=== PATIENT | male | born 1975 | race Caucasian/White ===

== ENCOUNTER 2020-02-01 15:27 | Outpatient (CLI) | payer OTHER, SELFPAY | END 2020-02-01 15:28 | disposition home or self-care (01) | PROVIDERS: PCP Internal Medicine; Visit Provider Surgery | DX: Z01.818 Encounter for other preprocedural examination (principal); K40.20 Bilateral inguinal hernia, without obstruction or gangrene, not specified as recurrent | CPT/HCPCS: 36415; 86850; 86900; 86901 ==

== ENCOUNTER 2020-02-06 00:01 | Outpatient (CLI) | payer OTHER, SELFPAY ==
[2020-02-06 18:54] LABS: SARS-CoV-2 RNA PCR Negative
== END 2020-02-06 00:02 | disposition home or self-care (01) ==
LOC: ANHCOVIDDT 00:01
PROVIDERS: PCP Internal Medicine; Visit Provider Surgery
DX: Z01.812 Encounter for preprocedural laboratory examination (principal); Z11.59 Encounter for screening for other viral diseases
CPT/HCPCS: 87635; C9803; U0003

== ENCOUNTER 2020-02-08 01:22 | Day surgery (SDC) | payer OTHER, SELFPAY ==
[2020-01-30 13:13] VITALS: BMI 25.1
[2020-02-08] VITALS (11 sets, daily range): BP systolic 118–169; BP diastolic 67–83; PULSE 43–52; RESP 12–20; TEMP 36.1–36.5; O2SAT 99–100
[2020-02-08] MEDS: LACTATED RINGERS 1,000 ML 30 ML IV CONT ×3 (06:49→10:56)
--- NOTE | 2020-02-08 06:53 | P.PNAN_ITS ---
Anes - Initial Pre Proc Eval Procedure: Operation Date: 02/08/20 07:30 Proposed Procedures p Laparoscopic Bilateral Inguinal Hernia Repair With Mesh, Davinci Assisted - Cordell Chowdary DO Date/Time: 02/08/20 06:53 Surgeon: Cordell Chowdary DO Pre Op Diagnosis: Bilateral Inguinal Hernia Patient Data Age: 44 Gender: M Height: 5 ft 9 in Weight: 78.4 kg Allergies Allergy/AdvReac Type Severity Reaction Status Date / Time No Known Allergies Allergy Verified 02/08/20 06:35 Home Medications Medication Instructions Recorded Confirmed Type omeprazole 20 mg capsule,delayed 20 mg PO DAILY 09/22/19 02/08/20 History release Patient hx anesthesia problems: none Family hx anesthesia problems: none PMFSH Past Medical History Medical History GERD (gastroesophageal reflux disease) Liver hematoma Surgical History Surgical History History of ankle surgery 2013 left and right History of esophagogastroduodenoscopy (EGD) 2009 Family History Family History Father Cerebrovascular accident Hypertension High blood cholesterol Other Family history of malignant neoplasm Social History Social History Smoking status: Never smoker Alcohol intake: current Substance use: never 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 Anes - Eval Final PreProcedure Day of Procedure 02/08/20 06:53 Patient weight: normal Heart: regular rate and rhythm Lungs: clear to auscultation Airway: Mallampati scale class 1 Neurological: alert and oriented Last oral intake: >/= 8 hours ASA classification: II Emergent: no Anesthetic plan: proceed Anesthesia type and monitoring: general ETT and standard monitoring Informed Consent: The patient's anesthetic plan and its attendant risks and benefits were discussed with the patient/family/POA. Questions were solicited and answers provided to the satisfaction of the patient/family/POA.
--- NOTE | 2020-02-08 06:57 | PM.IMHP ---
H&P: HPI History of Present Illness Chief complaint: Bilateral Inguinal Hernia Narrative: Cordell Abdalla Jr. is a 44 year old male who presents for bilateral inguinal hernia repair. He had noticed a bulge that was not painful. He reports no changes since last seen in office. 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 Allergies Home Medications Medication Instructions Recorded Confirmed Type omeprazole 20 mg capsule,delayed 20 mg PO DAILY 09/22/19 02/08/20 History release Allergies Allergy/AdvReac Type Severity Reaction Status Date / Time No Known Allergies Allergy Verified 02/08/20 06:35 Exam Const: General: no acute distress and alert Orientation/consciousness: patient oriented x3 HENMT: Head: normocephalic and atraumatic Ears: hearing grossly normal bilaterally General nose exam: Normal nares present Mouth: Yes Normal oral and palatal mucosa present Eyes: Periorbital: periorbital findings normal Sclera: sclerae normal EOM: EOMs intact bilaterally Neck: Neck: normal visual inspection, no lymphadenopathy and trachea midline Chest: Chest palpation & inspection: normal inspection of the chest Resp: Effort & Inspection: normal respiratory effort Auscultation: clear to auscultation bilaterally Cardio: Jugular venous distension: no JVD Rate: regular rate Rhythm: regular rhythm Heart sounds: S1 normal heart sound present and S2 normal heart sound present Peripheral pulses: Peripheral pulses 2+ throughout GI: Inspection: normal to inspection GI Palp: Yes Soft to palpation, No Tenderness to palpation present (GI), No Guarding due to palpation present (GI) and No Rebound tenderness present Percussion: Yes normal to percussion Auscultation: normal bowel sounds : General: Yes no CVA tenderness Scrotum: inguinal hernia bilateral Back/Spine/Pelvis: Back: no CVA tenderness Neuro: General: patient oriented x3, no focal motor deficits and CN's II-XI intact bilaterally Cognition (Neuro): normal cognition Speech: normal speech Motor exam (neuro): 5/5 motor strength present throughout Extrem: General: capillary refill normal and no clubbing, cyanosis or edema Assessment and Plan Assessment and plan (1) Bilateral inguinal hernia: Qualifiers: Obstruction and gangrene presence: without obstruction or gangrene Recurrence: non-recurrent Qualified Code(s): K40.20 - Bilateral inguinal hernia, without obstruction or gangrene, not specified as recurrent Code(s): K40.20 - Bilateral inguinal hernia, without obstruction or gangrene, not specified as recurrent Status: Acute Assessment and Plan: I have recommended laparoscopic bilateral inguinal hernia repair with mesh, da egdar assisted. I have discussed the procedure, risks, benefits, and alternatives with the patient. All questions answered. No changes since last seen in office.
[2020-02-08] MEDS: ceFAZolin 2 GM/D5W 50 ML 2 GM/50 ML BAG IVPB (07:21)
[2020-02-08] MEDS: IBUPROFEN IV 800 MG/200 ML 800 MG/200 ML BAG 400 MG IVPB (07:45)
[2020-02-08] MEDS: BUPIVACAINE/EPINEPHRINE 0.5% 30 ML VIAL INFILTRATE (08:05)
--- NOTE | 2020-02-08 08:53 | PM.PROC ---
Procedure Note - Detailed Date of procedure: 02/08/20 Pre-op diagnosis: Bilateral Inguinal Hernia Post-op diagnosis: same (Bilateral direct inguinal hernia) Procedure performed: Laparoscopic bilateral inguinal hernia repair with Progrip mesh, da Beba assisted Description of procedure: Procedure as well as risks, benefits, and alternatives were discussed with the patient. Written consent was obtained and placed in chart prior to procedure. Patient was brought back to surgical suite. He was placed supine on operating table. Time-out was done to confirm patient and procedure. He was then intubated by Anesthesia Department. His abdomen was prepped and draped in sterile fashion using chlorhexidine prep. 0.5% bupivacaine with epinephrine was infiltrated at each location for incision. A 12 millimeter transverse incision was made just superior to the umbilicus using a 15 blade scalpel. Blunt dissection was carried out down to the linea alba. A vertical incision was made at the linea alba using a 15 blade scalpel. The peritoneum was then bluntly entered. A 12 millimeter trocar was inserted and carbon dioxide insufflation was used to create a pneumoperitoneum. A camera was inserted and the abdominal cavity was inspected. The patient was placed in slight Trendelenburg position. An 8 millimeter incision was made on the right lateral abdomen and an 8 millimeter trocar was inserted under direct visualization. Another 8 millimeter incision was made in the left lateral abdomen and an 8 millimeter trocar was inserted under direct visualization. The robotic arms were brought up to the patient's bedside and secured to the ports. The camera and instruments were inserted. I then moved over to the robotic console and took control of the camera and instruments. After careful inspection of the abdominal cavity, I began scoring the peritoneum along the right lower quadrant using scissors with electrocautery. The preperitoneal plane was entered and this was carefully dissected caudally along the inferior epigastric vessels. Careful dissection with scissors with electrocautery and blunt dissection was used to continue this dissection. I dissected far enough laterally to allow for mesh placement, and also dissected medially to identify the pubic arch and Tucker's ligament. The hernia sac was identified and carefully dissected posteriorly. The cord contents were also identified and the peritoneum was carefully dissected far enough posteriorly to allow for mesh placement. Once an adequate pocket was created, I then placed the mesh within the preperitoneal pocket and carefully unfolded it. The mesh was centered on the hernia defect with adequate overlap circumferentially. The inferior edge of the mesh was inspected to ensure that it was far enough away from the peritoneal edge. The mesh appeared in proper position overlying the entire myopectineal orifice. The peritoneum was then closed over the mesh using a 3-0 V-lock running absorbable suture. I then began scoring the peritoneum along the left lower quadrant using scissors with electrocautery. The preperitoneal plane was entered and this was carefully dissected caudally along the inferior epigastric vessels. Careful dissection with scissors with electrocautery and blunt dissection was used to continue this dissection. I dissected far enough laterally to allow for mesh placement, and also dissected medially to identify the pubic arch and Tucker's ligament. The hernia sac was identified and carefully dissected posteriorly. The cord contents were also identified and the peritoneum was carefully dissected far enough posteriorly to allow for mesh placement. Once an adequate pocket was created, I then placed the mesh within the preperitoneal pocket and carefully unfolded it. The mesh was centered on the hernia defect with adequate overlap circumferentially. The inferior edge of the mesh was inspected to ensure that it was far enough
--- NOTE | 2020-02-08 08:54 | SUR.OPER ---
Ebl=5ml
== END 2020-02-08 12:11 | disposition home or self-care (01) ==
PROVIDERS: PCP Internal Medicine; Visit Provider Surgery
PROC: 8E0Y4CZ Robotic Assisted Procedure of Lower Extremity, Percutaneous Endoscopic Approach (ICD-10-PCS; CPT 49650; principal; 2020-02-08 07:30)
DX: K40.20 Bilateral inguinal hernia, without obstruction or gangrene, not specified as recurrent (principal); K21.9 Gastro-esophageal reflux disease without esophagitis
CPT/HCPCS: 49650; S2900; A9270; C1781; J0690; J1100; J1741; J2250; J2405; J2704; J2710; J3010; J7030; J7120

== ENCOUNTER 2020-04-28 09:32 | Outpatient (CLI) | payer OTHER, SELFPAY ==
[2020-04-28 09:47] LABS: Add Urine Microscopic? NO; Appearance Urine Clear (Clear); Basophils Absolute Auto 0.04 K/mm3 (0.00-0.10); Basophils Percent Auto 0.9 % (0.0-1.0); Bilirubin Urine Negative (Negative); Blood Urine Negative (Negative); Color Urine Yellow (Yellow); Eosinophils Percent Auto 2.3 % (1.0-6.0); Glucose Urine UA Negative (Negative); Hematocrit 41.6 % (40.0-54.0); Hemoglobin 13.8 g/dL (14.0-18.0); Immature Granulocyte Absolute 0.01 K/mm3 (0.00-0.00); Immature Granulocyte Percent A 0.2 % (0.0-0.0); Ketones Urine Negative (Negative); Leukocyte Esterase Ur Negative (Negative); Lymphocytes Absolute Auto 1.72 K/mm3 (1.10-4.50); Lymphocytes Percent Auto 39.4 % (18.0-42.0); Mean Corpuscular HGB Conc 33.2 g/dL (32.0-36.0); Mean Corpuscular Hemoglobin 28.2 pg (27.0-31.0); Mean Corpuscular Volume 85.1 fL (78.0-102.0); Mean Platelet Volume 10.1 fl (8.7-11.0); Monocytes Absolute Auto 0.36 K/mm3 (0.10-0.90); Monocytes Percent Auto 8.2 % (2.0-11.0); Neutrophils Absolute Auto 2.1 K/mm3 (1.7-7.2); Nitrate Urine Negative (Negative); Platelet Count Result 216 K/mm3 (150-420); Protein Urine Negative (Negative); Red Blood Count 4.89 M/mm3 (4.70-6.10); Red Cell Distribution Width 12.2 % (11.6-14.4); Specific Grav Ur >= 1.030 (1.010-1.020); Urobilinogen Urine 0.2 mg/dL (0.2-1.0); White Blood Count 4.4 K/mm3 (4.8-10.8); pH Urine 5.5 (5.0-8.0)
[2020-04-28 09:59] LABS: Hemoglobin A1C 5.1 % (<5.7)
[2020-04-28 10:27] LABS: Alanine Aminotransferase 34 U/L (16-63); Alkaline Phosphatase 91 U/L (46-116); Anion Gap 5 mmol/L (8-16); Aspartate Amino Transferase 27 U/L (15-37); Bilirubin,Total 0.4 mg/dL (0.00-1.00); Blood Urea Nitrogen 20 mg/dL (7-18); Calcium 8.5 mg/dL (8.5-10.1); Carbon Dioxide 31 mmol/L (21-32); Chloride 108 mmol/L (98-108); Cholesterol 187 mg/dL (0-200); Estimated Glomerular Filt Rate > 60; Glucose 109 mg/dL (70-99); HDL Direct 62 mg/dL (40-60); LDL Cholesterol Calculated 118 mg/dL (<130); Osmolality Calculated 301 mOsm/kg (285-295); Potassium 4.9 mmol/L (3.5-5.1); Sodium 144 mmol/L (136-145); Total Protein 6.9 g/dL (6.4-8.2); Triglycerides 36 mg/dL (0-150)
== END 2020-04-28 09:33 | disposition home or self-care (01) ==
LOC: CHSLAB 09:34
PROVIDERS: PCP Internal Medicine; Visit Provider Internal Medicine
DX: Z00.00 Encounter for general adult medical examination without abnormal findings (principal); R73.01 Impaired fasting glucose
CPT/HCPCS: 36415; 80053; 80061; 81003; 83036; 85025

== ENCOUNTER → 2022-10-06 16:32 | Outpatient (CLI) | payer BC, SELFPAY ==
--- NOTE | ~2022-10-06 | XR_ITS ---
EXAM: XR lumbar spine 2-3V DATE: 10/06/2022 16:46 HISTORY: Back pain . COMPARISON: None available. FINDINGS: Mild thoracolumbar scoliosis. 5 nonrib-bearing lumbar-type vertebral bodies. Pedicles intac t. Normal vertebral body alignment. Vertebral body heights preserved. Mild disc space narrowing and m arginal osteophytosis in the lower lumbar spine. Mild facet hypertrophy and sclerosis in the lower bubba mbar spine. No fracture or dislocation. IMPRESSION: Mild multilevel degenerative disc disease and facet arthropathy in the lower lumbar spine . Reviewed, dictated and finalized at location [facility] IMPRESSION: Mild multilevel degenerative disc disease and facet arthropathy in the lower lumbar spine.
== END ==
PROVIDERS: PCP Internal Medicine; Visit Provider Internal Medicine
DX: M51.36 Other intervertebral disc degeneration, lumbar region (principal); M47.816 Spondylosis without myelopathy or radiculopathy, lumbar region
CPT/HCPCS: 72100

== ENCOUNTER 2022-12-01 00:26 | Day surgery (SDC) | payer BC, SELFPAY ==
[2022-11-21 12:57] VITALS: BMI 29.0
[2022-12-01 06:22] VITALS: BP 125/82; PULSE 57; RESP 20; TEMP 36.1; O2SAT 100
[2022-12-01] MEDS: LACTATED RINGERS 1,000 ML 150 ML IV CONT (06:33)
--- NOTE | 2022-12-01 06:43 | WPDANESEPPF ---
Anes - Initial Pre Proc Eval Procedure: Operation Date: 12/01/22 07:30 Proposed Procedures p Screening Colonoscopy - Amadou Joy MD Date/Time: 12/01/22 06:43 Surgeon: Amadou Joy MD Pre Op Diagnosis: neoplasm screening Patient Data Age: 47 Gender: M Height: 1.73 m Weight: 84.9 kg Last Vital Signs Temp 36.1 C L 12/01/22 06:22 Pulse 57 L 12/01/22 06:22 Resp 20 12/01/22 06:22 BP 125/82 12/01/22 06:22 Pulse Ox 100 12/01/22 06:22 O2 Del Method Room Air 12/01/22 06:22 Allergies Allergy/AdvReac Type Severity Reaction Status Date / Time No Known Allergies Allergy Verified 12/01/22 06:20 Home Medications Medication Instructions Recorded Confirmed Type omeprazole 20 mg capsule,delayed 20 mg PO DAILY 09/22/19 11/21/22 History release Patient hx anesthesia problems: none Family hx anesthesia problems: none Results Review: All pre-operative results and documents have been reviewed as part of the pre-operative evaluation. [facility] [place] Past Medical History Medical History GERD (gastroesophageal reflux disease) Liver hematoma Surgical History Surgical History History of ankle surgery 2013 left and right History of bilateral inguinal hernia repair progrip mesh, da Beba assisted 02/08/20 History of esophagogastroduodenoscopy (EGD) 2009 Family History Family History Father Cerebrovascular accident Hypertension High blood cholesterol Other Family history of malignant neoplasm Social History Social History Smoking status: Never smoker Alcohol intake: current Alcohol use details: 5 drinks monthly Substance use: never Substance use type: does not use Living arrangements: with family Occupation/Education: occupation 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 Informed Consent: The patient's anesthetic plan and its attendant risks and benefits were discussed with the patient/family/POA. Questions were solicited and answers provided to the satisfaction of the patient/family/POA.
--- NOTE | 2022-12-01 07:28 | PM.HPGS ---
History of Present Illness History of Present Illness Consent: Risks, benefits, and alternatives have been discussed and questions answered. Patient agrees to proceed with procedure. Chief complaint: neoplasm screening Narrative: Cordell Abdalla Jr. is a 47 year old male here for first screening colonoscopy Review of Systems Constitutional: Constitutional: Denies headache(s) and Denies weakness Eyes: Eyes: Denies blurry vision ENT: Reports Normal hearing present, Denies headache(s) and Denies neck pain Cardiovascular: Cardiovascular: Denies chest pain and Denies dyspnea Respiratory: Respiratory: Denies dyspnea Gastrointestinal: Gastrointestinal: Reports no additional gastrointestinal complaints Genitourinary: Genitourinary: Denies dysuria Musculoskeletal: Musculoskeletal: Denies neck pain Integumentary/Breasts: Skin/Breast: Denies dry skin Neurologic: Reports Normal hearing present, Denies headache(s) and Denies weakness Psychiatric: Psychiatric: Denies anxiety Endocrine: Endocrine: Denies change in body appearance Hematologic/Lymphatic: Hematologic/Lymphatic: Denies easy bleeding Allergic/Immunologic: Allergic/Immunologic: Denies urticaria [facility] Past Medical History Medical History (Updated 12/01/22 @ 07:28 by Amadou Joy MD) Colon cancer screening GERD (gastroesophageal reflux disease) Liver hematoma Surgical History Surgical History History of ankle surgery 2013 left and right History of bilateral inguinal hernia repair progrip mesh, da Beba assisted 02/08/20 History of esophagogastroduodenoscopy (EGD) 2009 Family History Family History Father Cerebrovascular accident Hypertension High blood cholesterol Other Family history of malignant neoplasm Social History Social History Smoking status: Never smoker Alcohol intake: current Alcohol use details: 5 drinks monthly Substance use: never Substance use type: does not use Living arrangements: with family Occupation/Education: occupation 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 Meds Home Medications and Allergies Home Medications Medication Instructions Recorded Confirmed Type omeprazole 20 mg capsule,delayed 20 mg PO DAILY 09/22/19 11/21/22 History release Allergies Allergy/AdvReac Type Severity Reaction Status Date / Time No Known Allergies Allergy Verified 12/01/22 06:20 Vital Signs Vital Signs - 24 hr 12/01/22 06:22 Temperature 97 F L Pulse Rate 57 L Respiratory Rate 20 Blood Pressure 125/82 Pulse Oximetry 100 Oxygen Delivery Room Air Exam Const: General: comfortable and no acute distress HENMT: Face/Nose/Sinus: Normal nares present Eyes: General: appearance normal, both eyes and all related structures Neck: Neck: no JVD Resp: Auscultation: clear to auscultation bilaterally Cardio: Rate: regular rate Rhythm: regular rhythm GI: Inspection: non-distended GI Palp: Yes Soft to palpation Skin: General skin exam: normal color Neuro: General: gait normal Speech: normal speech Extrem: General: normal to inspection Psych: Mental Status: mental status grossly normal Assessment and Plan Assessment and plan (1) Colon cancer screening: Code(s): Z12.11 - Encounter for screening for malignant neoplasm of colon Status: Acute Assessment and Plan: colonoscopy
[2022-12-01 07:47] VITALS: BP 115/64; PULSE 59; RESP 16; O2SAT 100
[2022-12-01 07:57] VITALS: BP 127/73; PULSE 61; RESP 23; O2SAT 100
[2022-12-01 08:07] VITALS: BP 140/71; PULSE 53; RESP 17; O2SAT 100
== END 2022-12-01 08:15 | disposition home or self-care (01) ==
PROVIDERS: PCP Internal Medicine; Visit Provider Internal Medicine Gastroenterology
PROC: 0DJD8ZZ Inspection of Lower Intestinal Tract, Via Natural or Artificial Opening Endoscopic (ICD-10-PCS; CPT 45378; principal; 2022-12-01 07:30)
DX: Z12.11 Encounter for screening for malignant neoplasm of colon (principal); K64.8 Other hemorrhoids; K21.9 Gastro-esophageal reflux disease without esophagitis
CPT/HCPCS: 45378; J2704; J7120

== ENCOUNTER → 2023-09-15 16:00 | Outpatient (CLI) | payer BC, SELFPAY ==
--- NOTE | ~2023-09-15 | XR_ITS ---
EXAMINATION: XR chest 2V Exam Date/Time: 09/15/2023 16:23 [facility] HISTORY: Occasional pain in left lower rib area Comparison: 08/08/2013. RESULT: Lines, tubes, and devices: None. Lungs and pleura: Clear. Cardiomediastinal silhouette: Stable. Other: No acute osseous or upper abdominal finding. IMPRESSION: No acute cardiopulmonary process. Reviewed, dictated and finalized at location [facility]
== END ==
PROVIDERS: PCP Internal Medicine; Visit Provider Internal Medicine
DX: Z00.00 Encounter for general adult medical examination without abnormal findings (principal); M77.9 Enthesopathy, unspecified; I10 Essential (primary) hypertension
CPT/HCPCS: 71046